=== PATIENT | female | born 1985 | race Caucasian/White ===

== ENCOUNTER 2018-03-14 12:34 | Emergency (ER) | payer MEDICARE, OTHER ==
[~2018-03-14] VITALS: Ht 170.2 cm; Wt 113.4 kg
[~2018-03-14 12:34] MED LIST: AMPDEX10 PO; AMPDEX5 PO; BACL10 PO; CITA20 PO; CYCL10 PO; DICLOFENAC PO; DULO30 PO; ERYT.5TO RIGHTEYE; HYDR1TAB94 PO; IBUP600 PO; LORA1 PO; META800 PO; METPRE4DP PO; TRAZ50 PO
[2018-03-14 13:27] LABS: BASOPHILS ABSOLUTE AUTO 0.04 K/mm3 (0.00-0.23); BASOPHILS PERCENT AUTO 1 % (0-2); EOSINOPHILS ABSOLUTE AUTO 0.05 K/mm3 (0.00-0.68); EOSINOPHILS PERCENT AUTO 1 % (0-6); Hematocrit 44.4 % (33.0-51.0); Hemoglobin 15.1 g/dL (11.5-16.0); IMMATURE GRAN ABSOLUTE AUTO 0.01 K/mm3 (0.00-0.10); IMMATURE GRAN PERCENT AUTO 0 % (0-1); LYMPHOCYTES ABSOLUTE AUTO 1.97 K/mm3 (0.84-5.20); LYMPHOCYTES PERCENT AUTO 32 % (21-46); MONOCYTES ABSOLUTE AUTO 0.51 K/mm3 (0.16-1.47); MONOCYTES PERCENT AUTO 8 % (4-13); Mean Corpuscular HGB 32.3 pg (26.0-34.0); Mean Corpuscular Volume 95 fL (80-100); Mean Platelet Volume 9.2 fL (9.1-12.4); NEUTROPHILS ABSOLUTE AUTO 3.63 K/mm3 (1.96-9.15); NEUTROPHILS PERCENT AUTO 59 % (41-73); Platelet Count 300 K/mm3 (150-400); RDW Coefficient Variation 12.6 % (11.7-14.2); Red Blood Cell Count 4.67 M/mm3 (3.80-5.20); White Blood Cell Count 6.21 K/mm3 (4.00-11.30)
[2018-03-14] MEDS ORDERED: IBUP800 (13:28)
[2018-03-14] MEDS ORDERED: ESCI10 PO (13:28)
[2018-03-14] MEDS ORDERED: TOPI25 PO (13:29)
[2018-03-14] MEDS ORDERED: Ventolin5 MG/1 ML INH (13:30)
[2018-03-14] MEDS ORDERED: BUDE6HFA INH (13:31)
[2018-03-14 14:04] LABS: Alanine Aminotransfer (ALT/SGP 27 U/L (12-78); Albumin, Blood 3.9 g/dL (3.4-5.0); Alk Phos 64 U/L (50-136); Anion Gap 8 mmol/L (6-16); Aspartate Aminotrans (AST/SGOT 14 U/L (12-37); Bilirubin, Total 0.3 mg/dL (0.1-1.0); Blood Urea Nitrogen 13 mg/dL (8-24); Bun/Creatinine Ratio 20.4 (12.0-20.0); CO2, Blood 21 mmol/L (21-32); Calcium, Blood 8.6 mg/dL (8.5-10.1); Chloride, Blood 113 mmol/L (98-108); Creatinine, Blood 0.64 mg/dL (0.40-1.00); Globulin, Blood 3.9 g/dL (2.2-4.0); Glomerular Filtration Rate >60 (60-); Glucose, Blood 86 mg/dL (70-99); Potassium, Blood 3.8 mmol/L (3.5-5.5); Sodium, Blood 142 mmol/L (136-145); Total Protein, Blood 7.8 g/dL (6.4-8.2)
== END 2018-03-14 15:55 | disposition home or self-care (01) ==
LOC: ER 12:34
PROVIDERS: Emergency Medicine
DX: R51 Headache (principal); R11.0 Nausea; Z88.8 Allergy status to other drugs, medicaments and biological substances; Z79.899 Other long term (current) drug therapy; F17.210 Nicotine dependence, cigarettes, uncomplicated; G43.909 Migraine, unspecified, not intractable, without status migrainosus
CPT/HCPCS: 36415; 70450; 80053; 85025; 93005; 93010; 96374; 96375; 99284-25; J1200; J1885; J2405

== ENCOUNTER → 2020-02-18 | Outpatient (CLI) | payer MEDICARE ==
[~2020-02-18] MED LIST changes: +BUDE6HFA INH; +ESCI10 PO; +IBUP800; +TOPI25 PO; +Ventolin5 MG/1 ML INH
[2020-02-20 15:10] LABS: HPV 16 Negative (Negative); HPV 18 Negative (Negative); HPV OTHER HR TYPES Negative (Negative)
== END ==
LOC: LAB SHORT 19:24 → LAB 19:24
PROVIDERS: Registered Nurse Community Health
DX: Z12.4 Encounter for screening for malignant neoplasm of cervix (principal)
CPT/HCPCS: 87624; G0123

== ENCOUNTER 2022-09-27 12:30 | Day surgery (SDC) | payer MEDICARE ==
[~2022-09-27] VITALS: Ht 167.6 cm; Wt 102.2 kg
[~2022-09-27 12:30] MED LIST changes: +Apple Cider Vi300 MG; +FOLI1 PO; +HYDACE10B PO; -IBUP800; +IBUP800 PO; +LATA.005SO BOTHEYES; +MELATONIN1 MG PO; +RIZATRIPTAN10 MG; +Retin-A15 GM; +VYEPTI100 MG/1 M IV; -Ventolin5 MG/1 ML INH; +Ventolin5 MG/1 ML PO; +ZEBUTAL 50-3251 EA10 PO; +ZINC PO
[2022-09-27] MEDS ORDERED: CLINGEL TOP (13:29)
[2022-09-27] MEDS ORDERED: Amphetamine Sal20 MG PO (13:29)
--- NOTE | 2022-09-27 13:50 | NUR ---
Ambulatory in Day Surgery. Pre-Op teaching done. Pt verbalizes understanding. Patient confirms NPO status and agrees with scheduled surgery. Lungs clear T/O to Auscultation. Patient reports completing Chlorhexadine shower X2 prior to admission to hospital. Patient States Post-Procedure ride home has been arranged.
--- NOTE | 2022-09-27 14:12 | NUR ---
TOOK OVER PATIENT CARE AFTER REPORT WAS RECEIVED.
--- NOTE | 2022-09-27 15:52 | NUR ---
09/27/22 1552 Tayla Almanzar NO PREOP ANTIBIOTICS ORDERED PER .
--- NOTE | 2022-09-27 17:04 | NUR ---
Patient up to Ambulate independently. Gait steady. Discharge instructions reviewed with patient. Patient verbalizes understanding. Copy given to patient to take home. Dressing to procedure site clean, dry, intact with no visible drainage, swelling, erythema or bruising noted. Discharged via wheelchair to private car for ride home.
== END 2022-09-27 22:49 | disposition home or self-care (01) ==
LOC: ORSCMMR 12:30 → ORD 14:00 → ORSCMMR 14:00
PROVIDERS: Surgery
PROC: 0DBQXZZ Excision of Anus, External Approach (ICD-10-PCS; principal; 2022-09-27 14:00)
DX: K60.3 Anal fistula (principal); J45.909 Unspecified asthma, uncomplicated; F90.9 Attention-deficit hyperactivity disorder, unspecified type; F41.8 Other specified anxiety disorders; E66.9 Obesity, unspecified; Z68.36 Body mass index [BMI] 36.0-36.9, adult; Z79.899 Other long term (current) drug therapy
CPT/HCPCS: J1100; J2250; J2405; J2704; J2795; J3010; J7120

== ENCOUNTER 2023-11-29 08:18 | Day surgery (SDC) | payer MEDICARE ==
[2023-11-29] VITALS (7 sets, daily range): BP systolic 108–128; BP diastolic 73–86
[~2023-11-29] VITALS: Ht 170.2 cm; Wt 106.4 kg
[~2023-11-29 08:18] MED LIST changes: +Amphetamine Sal20 MG PO; +CLINGEL TOP
[2023-11-29] MEDS ORDERED: CeFAZolin Sodium 2,000 MG in NS 100 ML IV SCH (08:25)
[2023-11-29] MEDS ORDERED: Lactated Ringer's 1,000 ML IV SCH (08:25)
[2023-11-29] MEDS ORDERED: FentaNYL Citrate 50 MCG/ML 2 ML Injection ONE ×2 (10:27→10:55)
[2023-11-29] MEDS ORDERED: propofoL 40 ML IV ONE (10:27)
[2023-11-29] MEDS ORDERED: Rocuronium Bromide 10 MG/ML 5ML Injection IV ONE ×2 (10:27→10:55)
[2023-11-29] MEDS ORDERED: Lidocaine 1%-Epineph 1:100000 20 ML MDV ONE (10:49)
[2023-11-29] MEDS ORDERED: Bupivacaine 0.5% HCl 5 MG/ML 30MLVIAL ONE (10:49)
[2023-11-29] MEDS ORDERED: Ondansetron HCl 2 MG / ML 2ML Vial ONE (10:55)
[2023-11-29] MEDS ORDERED: Metoclopramide HCl 5MG / ML 2ML Vial ONE (10:55)
[2023-11-29] MEDS ORDERED: Sugammadex Sodium 200 MG/2ML SDV (100 MG/ML) ONE (11:04)
--- NOTE | 2023-11-29 11:17 | NUR ---
11/29/23 1117 Linda Klein ALL [id number] CORRECT.
[2023-11-29] MEDS ORDERED: HYDROcodone 5-APAP 325 TAB PO PRN (11:20)
--- NOTE | 2023-11-29 12:25 | NUR ---
Patient up to Ambulate independently. Gait steady. Discharge instructions reviewed with patient. Patient verbalizes understanding. Copy given to patient to take home, [facility]. Patient States Post-Procedure ride home has been arranged. Discharged via wheelchair to private car for ride home. PT REPORTS PAIN TOLERABLE.DRESSING C/D/I. REPORTS READY TO GO HOME.
== END 2023-11-29 12:25 | disposition home or self-care (01) ==
LOC: ORSCMMR 08:18 → ORD 09:45 → ORSCMMR 09:45
PROVIDERS: Surgery
PROC: 0DJD8ZZ Inspection of Lower Intestinal Tract, Via Natural or Artificial Opening Endoscopic (ICD-10-PCS; principal; 2023-11-29 09:45)
DX: K61.0 Anal abscess (principal); J45.909 Unspecified asthma, uncomplicated; E66.9 Obesity, unspecified; Z68.36 Body mass index [BMI] 36.0-36.9, adult; Z79.899 Other long term (current) drug therapy
CPT/HCPCS: 84703; A9270; J0690; J2405; J2704; J2765; J3010; J7120

== ENCOUNTER → 2024-03-17 | Outpatient (CLI) | payer MEDICARE | END | disposition home or self-care (01) | LOC: LAB SHORT 18:02 → LAB 18:02 | DX: N89.8 Other specified noninflammatory disorders of vagina (principal); R30.9 Painful micturition, unspecified | CPT/HCPCS: 87070; 87077; 87086; 87186; 87205 ==

== ENCOUNTER → 2024-06-23 | Outpatient (CLI) | payer MEDICARE ==
[2024-06-23 20:42] LABS: Bacterial Vaginosis PCR Negative (NEGATIVE); Candida Group, PCR NOT DETECTED (NOT DETECT); Candida glabrata-krusei, PCR NOT DETECTED (NOT DETECT)
== END | disposition home or self-care (01) ==
LOC: LAB SHORT 11:43 → LAB 11:43
PROVIDERS: Family Medicine
DX: N39.0 Urinary tract infection, site not specified (principal); N89.8 Other specified noninflammatory disorders of vagina
CPT/HCPCS: 87086; 87481; 87661; 87801

== ENCOUNTER → 2024-10-24 | Outpatient (CLI) | payer MEDICARE ==
[2024-10-24 16:51] LABS: Bacterial Vaginosis PCR Negative (NEGATIVE); Candida Group, PCR NOT DETECTED (NOT DETECT); Candida glabrata-krusei, PCR NOT DETECTED (NOT DETECT)
== END ==
LOC: LAB SHORT 14:42 → LAB 14:42
PROVIDERS: Registered Nurse Community Health
DX: N89.8 Other specified noninflammatory disorders of vagina (principal)
CPT/HCPCS: 81515

== ENCOUNTER → 2024-12-11 | Outpatient (CLI) | payer MEDICARE | LOC: LAB SHORT 14:27 → LAB 14:27 | DX: E03.9 Hypothyroidism, unspecified (principal) | CPT/HCPCS: 84443 ==